=== PATIENT | female | born 1995 | race African-American/Black ===

== ENCOUNTER 2023-05-17 13:39 | Outpatient (RCR) | payer MEDICAID, SELFPAY ==
[2023-05-16 12:00] LABS: Basophils Percent Auto 0.4 % (0.2-1.2); Eosinophils Absolute Auto 0.2 K/mm3 (0-0.3); Eosinophils Percent Auto 4.9 % (0-4.4); Hematocrit 31.3 % (37.0-47.0); Hemoglobin 9.6 g/dL (12.0-15.0); Immature Granulocyte Absolute 0.02 K/mm3 (0.00-0.031); Immature Granulocyte Percent A 0.4 % (0-0.5); Lymphocytes Absolute Auto 0.96 K/mm3 (0.9-3.2); Lymphocytes Percent Auto 19.6 % (18.3-44.2); Mean Corpuscular HGB Conc 30.7 g/dl (32-36); Mean Corpuscular Volume 87.9 fl (80-100); Monocytes Absolute Auto 0.3 K/mm3 (0.1-0.6); Monocytes Percent Auto 6.1 % (2.6-8.5); Neutrophils Absolute Auto 3.4 K/mm3 (1.3-6.7); Neutrophils Percent Auto 68.6 % (45.5-73.1); Platelet Count Result 254 k/mm3 (150-375); Red Blood Count 3.56 M/mm3 (4.2-5.4); Red Cell Distribution Width 14.1 % (11.5-14.5); White Blood Count 4.9 K/mm3 (4.5-10.0)
[2023-05-16 12:15] LABS: Glucose 1 Hour PP 50gm Dose 149 mg/dL
[2023-05-16 12:49] LABS: Hepatitis B Surface Antigen Negative (Negative); Rubella IgG Antibody 21.6 IU/ML
[2023-05-16 12:54] LABS: HAV RESULT Negative (Negative); Hepatitis B Core IgM Result Negative (Negative)
[2023-05-16 12:56] LABS: HIV 1/2 Ab P24 Ag Result Negative (Negative)
[2023-05-16 13:05] LABS: Hepatitis C Virus Antibody Negative (Negative)
[2023-05-17] MEDS: RHO(D) IMMUNE GLOBULIN 300 MCG/2 ML SYRINGE IM (11:42)
[2023-05-17 12:44] LABS: Rapid Plasma Reagin Non-Reactive (NonReactive)
[2023-05-18 10:08] LABS: HIV 1 2 Ag Ab 4th Gen w Rflxs Nonreactive (Nonreactive)
== END 2023-05-17 14:00 | disposition home or self-care (01) ==
LOC: ANHLAB 13:39
PROVIDERS: PCP Student in an Organized Health Care Education/Training Program; Visit Provider Student in an Organized Health Care Education/Training Program
DX: Z29.13 Encounter for prophylactic Rho(D) immune globulin (principal); O36.0190 Maternal care for anti-D [Rh] antibodies, unspecified trimester, not applicable or unspecified; Z11.4 Encounter for screening for human immunodeficiency virus [HIV]; Z11.3 Encounter for screening for infections with a predominantly sexual mode of transmission; Z3A.00 Weeks of gestation of pregnancy not specified
CPT/HCPCS: 36415; 80074; 82947; 85025; 85461; 86592; 86644; 86695; 86696; 86703; 86747; 86762; 86787; 86850; 86900; 86901; 87086; 87088; 87389; 90384; 96372; G0432; J2790

== ENCOUNTER 2023-06-25 11:51 | Outpatient (CLI) | payer MEDICAID, SELFPAY ==
[2023-06-25 13:05] LABS: Basophils Percent Auto 0.4 % (0.2-1.2); Eosinophils Absolute Auto 0.1 K/mm3 (0-0.3); Eosinophils Percent Auto 2.7 % (0-4.4); Hematocrit 28.4 % (37.0-47.0); Hemoglobin 8.6 g/dL (12.0-15.0); Immature Granulocyte Absolute 0.02 K/mm3 (0.00-0.031); Immature Granulocyte Percent A 0.4 % (0-0.5); Lymphocytes Absolute Auto 1.36 K/mm3 (0.9-3.2); Lymphocytes Percent Auto 28.4 % (18.3-44.2); Mean Corpuscular HGB Conc 30.3 g/dl (32-36); Mean Corpuscular Hemoglobin 24.6 pg (26-34); Mean Corpuscular Volume 81.1 fl (80-100); Mean Platelet Volume 10.4 fl (7.4-10.4); Monocytes Absolute Auto 0.3 K/mm3 (0.1-0.6); Monocytes Percent Auto 6.5 % (2.6-8.5); Neutrophils Percent Auto 61.6 % (45.5-73.1); Nucleated Red Blood Cells Perc 0.4 % (0.0-0.2); Platelet Count Result 216 k/mm3 (150-375); Red Cell Distribution Width 16.4 % (11.5-14.5); White Blood Count 4.8 K/mm3 (4.5-10.0)
[2023-06-25 14:04] LABS: Iron 42 ug/dL (37-170)
[2023-06-25 14:13] LABS: Percent Iron Saturation 8 % (20-50)
== END 2023-06-25 11:52 | disposition home or self-care (01) ==
LOC: ANHLAB 11:53
PROVIDERS: PCP Student in an Organized Health Care Education/Training Program; Visit Provider Student in an Organized Health Care Education/Training Program
DX: D64.9 Anemia, unspecified (principal); O99.019 Anemia complicating pregnancy, unspecified trimester; Z3A.00 Weeks of gestation of pregnancy not specified
CPT/HCPCS: 36415; 83540; 83550; 85025

== ENCOUNTER 2023-08-02 13:58 | Outpatient (CLI) | payer OTHER, SELFPAY ==
[2023-08-02 14:16] LABS: Hematocrit 30.1 % (37.0-47.0)
== END 2023-08-02 13:59 | disposition home or self-care (01) ==
LOC: ANHLAB 13:59
PROVIDERS: Visit Provider Student in an Organized Health Care Education/Training Program
DX: O99.019 Anemia complicating pregnancy, unspecified trimester (principal)
CPT/HCPCS: 36415; 85014; 85018

== ENCOUNTER 2023-08-06 11:23 | Outpatient (RCR) | payer OTHER, SELFPAY ==
--- NOTE | ~2023-08-06 | US_ITS ---
EXAMINATION: US OB follow up DATE: 08/06/2023 13:51 INDICATION: Growth for possible SGA . TECHNIQUE: Real-time ultrasound of the pelvis was performed. COMPARISON: None. FINDINGS: There is a single living fetus in vertex presentation, longitudinal lie. The placenta is anterior. C ervix obscured by the head. heart rate is 146 bpm. The amniotic fluid index is 16.2 cm, w hich is normal (5th to 95th percentile is 7.2 to 22.6 cm). The following biometric data were obtained: Biparietal diameter (BPD): Not measurable; head circumference (HC): 34.89 cm; abdominal circumference (AC): 38.67 cm; femur length (FL): 7.61 cm. Estimated weight is 4327 g +/- 649.01 g, which correlates with the 95.3 percentile when 08/08/19 24 is used as estimated date of delivery. As single measurements, these parameters are each equal to the following estimated gestational ages w ith ranges of +/- 2 standard deviations: BPD: Not applicable. HC: 40 weeks 4 days +/- 2 weeks 5 days. AC: Out of range, over the 97th percentile. FL: 38 weeks 6 days +/- 3 weeks 1 days. estimated gestational age based solely on measurements from this exam is 39 weeks 5 days +/- 2 weeks 5 days. IMPRESSION: Technically difficult examination, best obtainable measurements provided, biparietal diameter not feng surable due to the low-lying head. Single living fetus in vertex presentation. EFW 4327g plus/-649.01g. HOLDEN 08/08/2023. Reviewed, dictated and finalized at location [facility]. IMPRESSION: Technically difficult examination, best obtainable measurements provided, bipar ietal diameter not measurable due to the low-lying head. Single living fetus in vertex presentation. EFW 4327g plus/-649.01g. HOLDEN 08/08/2023.
[2023-08-06 13:51] VITALS: BP 121/72; PULSE 90
== END 2023-08-13 08:24 | disposition home or self-care (01) ==
LOC: ANHOBOP 11:23
PROVIDERS: Visit Provider Student in an Organized Health Care Education/Training Program
DX: O99.013 Anemia complicating pregnancy, third trimester (principal); D64.9 Anemia, unspecified; Z3A.39 39 weeks gestation of pregnancy
CPT/HCPCS: 59025; 76816